=== PATIENT | female | born 1945 | race Caucasian/White ===

== ENCOUNTER 2020-12-15 13:42 | Emergency (ER) | payer OTHER, MEDICARE, BC ==
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
--- NOTE | 2020-12-15 15:03 | CT ---
CT cervical spine Technique: Multiple axial sections through the cervical spine were obtained from both C1 inferiorly to the mid to lower level of T3. Reconstructed coronal and sagittal images were obtained. Comparison: Prior cervical spine plain film study of 12/04/16. Findings: Retention cyst is noted within the inferior left maxillary sinus measuring about 1.4 cm. 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 Visualized lung apices show nothing acute. Slight anterior osteophytes are seen at C5-6. Disc spaces and vertebral body height are maintained. Mild degenerative apophyseal change is seen at C7-T1. Lesser degenerative apophyseal change is noted throughout other portions of the cervical spine. Mild degenerative change is noted between the dens and anterior arch of C1. No central canal stenosis or neural foraminal stenosis is seen. No fracture or subluxation is seen. Impression: 1. Degenerative change as noted above. 2. Retention cyst within the left maxillary sinus. 3. No acute fracture or abnormal subluxation is seen within the cervical spine. Diagnostic code #2
--- NOTE | 2020-12-15 15:17 | CT ---
CT chest Technique: Multiple axial sections through the chest were obtained. Intravenous contrast was not utilized. Reconstructed coronal and sagittal images were obtained. Comparison: No prior chest CT study is available. Findings: Thoracic aorta shows atherosclerotic calcification. Ascending aorta is slightly ectatic. No aneurysm is seen. Coronary artery calcification is noted. Mediastinum and hilar regions show no adenopathy or mass. No pericardial thickening is seen. Small portion of the visualized upper abdominal structures appear within normal limits. Minimal pleural thickening is seen posteriorly within the right lung base. Lungs otherwise are clear with no acute parenchymal change. No pleural effusions or pneumothorax are seen. Bone window settings were reviewed which show minimal degenerative change within the thoracic spine. No acute osseous abnormality is appreciated. Impression: 1. Findings as noted above. 2. Nothing acute is seen on noncontrast CT study of the chest. Diagnostic code #2
== END 2020-12-15 16:25 | disposition home or self-care (01) ==
LOC: JD.ED 13:42
DX: S13.4XXA Sprain of ligaments of cervical spine, initial encounter (principal); S20.211A Contusion of right front wall of thorax, initial encounter; E78.00 Pure hypercholesterolemia, unspecified; Z79.899 Other long term (current) drug therapy; V43.61XA Car passenger injured in collision with sport utility vehicle in traffic accident, initial encounter
CPT/HCPCS: 71250; 71250-26; 72125; 72125-26; 99283; 99284-25

== ENCOUNTER 2021-09-25 07:34 | Day surgery (SDC) | payer MEDICARE, BC ==
[~2021-09-25 07:34] MED LIST: Lactated Ringers 1,000 ML IV SCH; Lidocaine 1%/Sod Bicarbonate in NS 8.4% 1 ML Syringe IDERM PRN; Morphine 8 MG, EPINEPHrine 0.3 MG, Cefuroxime 750 MG, Ketorolac 30 MG, Sodium Chloride ... PRN; Sodium Chloride 0.9% 10 ML Syringe FLUSH PRN; Sodium Chloride 0.9% 10 ML Syringe FLUSH SCH
[2021-09-25] MEDS ORDERED: Propofol 200 MG/20 ML SDV ONE ×2 (10:15)
[2021-09-25] MEDS ORDERED: Lidocaine 1% 4 ML ONE (10:15)
[2021-09-25] MEDS ORDERED: Vancomycin 1 GM SDV ONE (10:25)
[2021-09-25] MEDS ORDERED: ceFAZolin 1 GM Vial ONE (11:58)
[2021-09-25] MEDS ORDERED: Ondansetron 4 MG/2 ML SDV ONE (12:34)
[2021-09-25] MEDS ORDERED: Lactated Ringers 1,000 ML ONE (12:39)
[2021-09-25] MEDS ORDERED: diphenhydrAMINE 50 MG/ML SDV IVPUSH PRN (13:26)
[2021-09-25] MEDS ORDERED: Ondansetron 4 MG/2 ML SDV IVPUSH PRN (13:26)
[2021-09-25] MEDS ORDERED: fentaNYL 100 MCG/2 ML SDV IVPUSH PRN (13:26)
[2021-09-25] MEDS ORDERED: EPINEPHrine 1 MG/ML SDV ONE (13:31)
[2021-09-25] MEDS ORDERED: Ropivacaine 0.5% 5 MG/ML 30 ML SDV ONE (13:31)
[2021-09-25] MEDS ORDERED: Acetaminophen/HYDROcodone 325-5 MG Tab PO PRN (16:15)
== END 2021-09-25 16:56 | disposition home or self-care (01) ==
LOC: JD.SDS 07:34
PROVIDERS: ATTEND Orthopaedic Surgery
DX: M17.0 Bilateral primary osteoarthritis of knee (principal); E78.00 Pure hypercholesterolemia, unspecified; R05.9 Cough, unspecified; K21.9 Gastro-esophageal reflux disease without esophagitis; H54.7 Unspecified visual loss; Z88.1 Allergy status to other antibiotic agents; Z88.8 Allergy status to other drugs, medicaments and biological substances
CPT/HCPCS: 0055T; 27447; 73560; 97110; 97116; 97161; A9270; C1713; C1776; J0171; J0690; J0697; J1885; J2270; J2405; J2704; J2795; J3370; J7120; 01402; 64447; 76942

== ENCOUNTER 2023-11-24 08:40 | Emergency (ER) | payer MEDICARE, BC ==
[2023-11-24] MEDS: Dextrose 5%-0.9% NaCl 1,000 ML IV SCH (09:02)
[2023-11-24] MEDS: Hyoscyamine 0.125 MG Tab.SL SL ONE ×2 (09:02→09:08)
[2023-11-24] MEDS: Metoclopramide 10 MG/2 ML SDV IVPUSH ONE (09:07)
[2023-11-24 09:25] LABS: BASOPHILS ABSOLUTE AUTO 0.1 K/mm3 (0.0-0.2); BASOPHILS PERCENT AUTO 0.8 % (0.0-1.0); EOSINOPHILS ABSOLUTE AUTO 0.1 K/mm3 (0.0-0.4); EOSINOPHILS PERCENT AUTO 2.1 % (0.0-6.0); HEMATOCRIT 43.3 % (37.0-47.0); HEMOGLOBIN 14.7 gm/dl (12.0-16.0); IMMATURE GRAN ABSOLUTE AUTO 0.01 K/mm3 (0.00-0.05); IMMATURE GRAN PERCENT AUTO 0.2 % (0.0-0.4); LYMPHOCYTES ABSOLUTE AUTO 1.4 K/mm3 (1.0-4.8); LYMPHOCYTES PERCENT AUTO 20.5 % (24.0-44.0); MEAN CORPUSCULAR HEMOGLOBIN 30.9 pg (28.0-32.0); MEAN CORPUSCULAR HGB CONC 33.9 g/dl (32.0-36.0); MEAN PLATELET VOLUME 9.2 fl (9.4-12.3); MONOCYTES ABSOLUTE AUTO 0.6 K/mm3 (0.0-0.8); MONOCYTES PERCENT AUTO 8.8 % (0.0-8.0); NEUTROPHILS ABSOLUTE AUTO 4.5 K/mm3 (1.8-7.7); NEUTROPHILS PERCENT AUTO 67.6 % (41.0-71.0); PLATELET COUNT,PLT 206 K/mm3 (150-400); RED BLOOD CELL COUNT 4.76 M/mm3 (4.10-5.30); WHITE BLOOD CELL COUNT,WBC 6.59 K/mm3 (3.9-11.3)
[2023-11-24 09:46] LABS: A/G RATIO 1.5 (1-2); ALBUMIN 4.2 g/dl (3.4-5.0); ANION GAP 12.4 (5-15); BUN/CREATININE RATIO 10.8 (14-18); C-REACTIVE PROTEIN 0.42 mg/dL (<0.30); CALCIUM 9.9 mg/dL (8.5-10.1); CREATININE 1.3 mg/dL (0.55-1.02); EST CRCL DRUG DOSING (CG) 33.13 mL/min; MAGNESIUM 2.1 mg/dL (1.8-2.4); POTASSIUM,K 3.4 mEq/L (3.5-5.1)
[2023-11-24 09:50] LABS: LACTIC ACID 2.2 mmol/L (0.4-2.0)
[2023-11-24] MEDS: HYDROmorphone 0.5 MG/0.5 ML Syringe IVPUSH ONE (11:00)
== END 2023-11-24 12:02 | disposition home or self-care (01) ==
LOC: JD.ED 08:40
DX: K85.10 Biliary acute pancreatitis without necrosis or infection (principal); K80.51 Calculus of bile duct without cholangitis or cholecystitis with obstruction; E78.00 Pure hypercholesterolemia, unspecified; Z88.8 Allergy status to other drugs, medicaments and biological substances; Z79.82 Long term (current) use of aspirin; Z79.899 Other long term (current) drug therapy; Z90.710 Acquired absence of both cervix and uterus
CPT/HCPCS: 36415; 74018; 80053; 82977; 83605; 83690; 83735; 83880; 84484; 85025; 86140; 93005; 96361; 96374; 99284; A9270; J2765; J7042

== ENCOUNTER 2023-11-27 12:57 | Inpatient (IN) | payer MEDICARE, BC ==
[2023-11-27] MEDS ORDERED: Sodium Chloride 0.9% 10 ML Syringe FLUSH PRN (13:45)
[2023-11-27] MEDS: Lactated Ringers 1,000 ML IV SCH (14:00)
[2023-11-27] MEDS ORDERED: Sodium Chloride 0.9% 100 ML ONE (14:01)
[2023-11-27] MEDS ORDERED: dexmedeTOMIDine HCl 200 MCG/2 ML SDV ONE ×2 (14:01→14:04)
[2023-11-27] MEDS ORDERED: Midazolam 1 MG/ML 2 ML SDV ONE (14:04)
[2023-11-27] MEDS ORDERED: Propofol 200 MG/20 ML SDV ONE (14:04)
[2023-11-27] MEDS ORDERED: fentaNYL 250 MCG/5 ML SDV ONE (14:05)
[2023-11-27] MEDS ORDERED: Lidocaine 2% 5 ML SDV ONE (14:07)
[2023-11-27] MEDS ORDERED: Rocuronium 50 MG/5 ML Vial ONE (14:07)
[2023-11-27] MEDS ORDERED: Dexamethasone 4 MG/ML 5 ML MDV ONE (16:35)
[2023-11-27] MEDS ORDERED: Lactated Ringers 1,000 ML IV ONE (16:45)
[2023-11-27] MEDS ORDERED: ceFAZolin 2 GM Vial ONE (17:19)
[2023-11-27] MEDS ORDERED: Labetalol 100 MG/20 ML MDV ONE (17:19)
[2023-11-27] MEDS ORDERED: Sugammadex Sodium 200 MG/2 ML VIAL IV ONE (17:45)
[2023-11-27] MEDS: Lidocaine 2% 20 ML MDV ONE ×2 (17:55)
[2023-11-27] MEDS: Ropivacaine 0.5% 5 MG/ML 30 ML SDV ONE (17:55)
[2023-11-27] MEDS ORDERED: fentaNYL 100 MCG/2 ML SDV IVPUSH PRN (18:44)
[2023-11-27] MEDS ORDERED: Ondansetron 4 MG/2 ML SDV IVPUSH PRN (18:44)
[2023-11-27] MEDS ORDERED: Bupivacaine 0.5% 30 ML SDV ONE (18:57)
[2023-11-27] MEDS: HYDROmorphone 0.5 MG/0.5 ML Syringe ONE (19:00)
[2023-11-27] MEDS ORDERED: Acetaminophen Soln 650 MG/20.3 ML UD Cup PO PRN (20:47)
[2023-11-27] MEDS ORDERED: Ketorolac 30 MG/ML SDV IVPUSH SCH (21:00)
[2023-11-27] MEDS: Sodium Chloride 0.9% 1,000 ML IV SCH (21:10)
[2023-11-27] MEDS: Heparin Sodium 5,000 Units/ML Vial SUBCUT SCH (21:17)
[2023-11-27] MEDS: HYDROmorphone 0.5 MG/0.5 ML Syringe IVPUSH PRN (21:17)
[2023-11-27] MEDS: atorvaSTATin 20 MG Tab PO SCH (21:17)
[2023-11-28] MEDS: Sodium Chloride 0.9% 10 ML Syringe FLUSH SCH (00:11)
[2023-11-28] MEDS: Ketorolac 15 MG/ML SDV IVPUSH PRN (00:45)
[2023-11-28 04:38] LABS: HEMATOCRIT 41.4 % (37.0-47.0); HEMOGLOBIN 14.3 gm/dl (12.0-16.0); MEAN CORPUSCULAR HEMOGLOBIN 30.8 pg (28.0-32.0); MEAN CORPUSCULAR HGB CONC 34.5 g/dl (32.0-36.0); MEAN CORPUSCULAR VOLUME 89.2 fl (83.0-99.0); MEAN PLATELET VOLUME 8.8 fl (9.4-12.3); PLATELET COUNT,PLT 214 K/mm3 (150-400); RED BLOOD CELL COUNT 4.64 M/mm3 (4.10-5.30); WHITE BLOOD CELL COUNT,WBC 10.02 K/mm3 (3.9-11.3)
[2023-11-28 05:07] LABS: BILIRUBIN DIRECT 0.2 mg/dl (0.0-0.2); BILIRUBIN TOTAL 3.4 mg/dL (0.2-1.0); BUN/CREATININE RATIO 8.3 (14-18); CALCIUM 8.9 mg/dL (8.5-10.1); CREATININE 1.2 mg/dL (0.55-1.02); EST CRCL DRUG DOSING (CG) 35.89 mL/min; MAGNESIUM 1.8 mg/dL (1.8-2.4); PHOSPHORUS 3.6 mg/dL (2.6-4.7)
[2023-11-28] MEDS: Calcium Carbonate/Vitamin D3 600 MG-200 Units Tab PO SCH (09:09)
[2023-11-28] MEDS: Hydrochlorothiazide 12.5 MG Cap PO SCH (09:09)
[2023-11-28] MEDS: Psyllium Husk Powder Sugar Free 5.85 GM Packet PO SCH (11:46)
== END 2023-11-28 16:10 | disposition home or self-care (01) | DRG 419 ==
LOC: JD.SDS 12:57 → JD.MS 20:03
PROVIDERS: ADMIT Family Medicine; ATTEND Family Medicine
PROC: 0FT44ZZ Resection of Gallbladder, Percutaneous Endoscopic Approach (ICD-10-PCS; principal; 2023-11-27 13:45)
DX: K81.0 Acute cholecystitis (principal); K21.9 Gastro-esophageal reflux disease without esophagitis; G47.30 Sleep apnea, unspecified; E78.00 Pure hypercholesterolemia, unspecified; Z79.899 Other long term (current) drug therapy; Z88.1 Allergy status to other antibiotic agents; Z88.8 Allergy status to other drugs, medicaments and biological substances; Z98.49 Cataract extraction status, unspecified eye; Z87.01 Personal history of pneumonia (recurrent); Z90.710 Acquired absence of both cervix and uterus; Z98.51 Tubal ligation status; Z96.659 Presence of unspecified artificial knee joint; Z98.890 Other specified postprocedural states
CPT/HCPCS: 36415; 80048; 82247; 82248; 83735; 84100; 85027; 88304; A9270-GY; J0665; J0690; J1100; J1170; J1644; J1885; J1921; J2001; J2250; J2704; J2795; J3010; J3490; J7030; J7120